=== PATIENT | male | born 1985 | race Two or more races ===

== ENCOUNTER 2023-01-24 02:09 | Emergency (ER) | payer SELFPAY ==
[~2023-01-24] VITALS: Ht 175.3 cm; Wt 90.0 kg
[2023-01-24 03:00] LABS: Basophils # (auto) 0 10 ^3/uL (0-0.2); Basophils % (auto) 0.6 % (0.0-2.0); Eosinophils # (auto) 0.1 10 ^3/uL (0-0.8); Eosinophils % (auto) 1.1 % (0.0-7.0); Hematocrit 42.6 % (41.0-53.0); Hemoglobin 14.6 g/dL (13.5-17.5); Lymphocytes # (auto) 1.7 10 ^3/uL (0.4-5.4); Lymphocytes % (auto) 23.1 % (10.0-50.0); Mean Corpuscular Hemoglobin 33.6 pg (28.0-32.0); Mean Corpuscular Hgb Conc. 34.3 g/dL (32.0-36.0); Monocytes # (auto) 0.3 10 ^3/uL (0-1.3); Monocytes % (auto) 4.6 % (0.0-12.0); Neutrophils # (auto) 5.2 10 ^3/uL (1.6-8.6); Neutrophils % (auto) 70.6 % (37.0-80.0); Nucleated Red Blood Cells % 0.2 %; Red Blood Cells 4.35 10^6/uL (4.5-5.90); Red Cell Distribution Width 13.6 % (11.8-14.3); White Blood Cell 7.4 10^3/uL (4.4-10.8)
[2023-01-24 03:15] LABS: INR 0.95 (0.9-1.15); Partial Thromboplastin Time 29.9 sec (24.6-33.4)
[2023-01-24 03:19] LABS: Albumin 3.7 g/dL (3.4-5.0); BUN/Creatinine Ratio 8.2 (10.0-20.0); Calcium 8.9 mg/dL (8.5-10.1); Magnesium 2.6 mg/dL (1.6-2.6); Potassium 3.8 mmol/L (3.5-5.1)
[2023-01-24 03:22] LABS: Bilirubin, Total 0.3 mg/dL (0.2-1.0); Total Protein 7.6 g/dL (6.4-8.2)
[2023-01-24 06:16] VITALS: BP 123/92
[2023-01-24] MEDS ORDERED: DICYCLOMINE HCL 10 MG CAP PO ONE (06:45)
[2023-01-24] MEDS ORDERED: IBUP-1455 PO (08:07)
[2023-01-24] MEDS ORDERED: ACET500T58 PO (08:07)
== END 2023-01-24 08:16 | disposition home or self-care (01) ==
LOC: ER 02:09 → EDBD 02:09 → ER 08:16
DX: B34.9 Viral infection, unspecified (principal)
CPT/HCPCS: 36415; 80053; 83735; 83880; 84484; 85025; 85610; 85730; 93005; 99284; J0500